=== PATIENT | female | born 1955 | race Caucasian/White ===

== ENCOUNTER 2025-01-10 10:34 | Emergency (ER) | payer MEDICARE ==
[~2025-01-10] VITALS: Ht 152.4 cm; Wt 64.0 kg
[2025-01-10 10:41] VITALS: O2SAT 98
[2025-01-10] MEDS: KETOROLAC 30MG/ML VIAL IM STA (11:43)
[2025-01-10] MEDS ORDERED: T3 PO (13:42)
[2025-01-10 14:30] VITALS: BP 130/88; PULSE 77; RESP 16; TEMP 36.9; O2SAT 98
== END 2025-01-10 14:31 | disposition home or self-care (01) ==
LOC: ER 10:34
DX: M75.32 Calcific tendinitis of left shoulder (principal); M75.31 Calcific tendinitis of right shoulder; E11.9 Type 2 diabetes mellitus without complications
CPT/HCPCS: 99283; 73030; 96372; J1885

== ENCOUNTER 2025-05-17 19:22 | Emergency (ER) | payer MEDICARE, MEDICAID ==
[~2025-05-17] VITALS: Ht 152.4 cm; Wt 65.0 kg
[~2025-05-17 19:22] MED LIST: T3 PO
[2025-05-17 19:47] VITALS: O2SAT 98
[2025-05-17] MEDS ORDERED: ACETAMINOPHEN WITH CODEINE 300/30MG TABLET PO ONE (21:00)
[2025-05-17] MEDS: ACETAMINOPHEN WITH CODEINE 300/30MG TABLET PO SCH (21:37)
[2025-05-17] MEDS ORDERED: T3 PO (22:14)
[2025-05-17 22:24] VITALS: BP 141/70; PULSE 85; RESP 18; TEMP 36.9; O2SAT 100
== END 2025-05-17 22:25 | disposition home or self-care (01) ==
LOC: ER 19:22
DX: M25.562 Pain in left knee (principal); E11.9 Type 2 diabetes mellitus without complications; I87.1 Compression of vein
CPT/HCPCS: 73502; 73562; 93971; 99284